=== PATIENT | male | born 1975 | race Hispanic/Latino ===

== ENCOUNTER 2024-09-14 02:07 | Emergency (ER) | payer SELFPAY ==
[~2024-09-14] VITALS: Ht 175.3 cm; Wt 102.1 kg
[2024-09-14 02:09] VITALS: BP 131/85; PULSE 70; RESP 16; TEMP 97.8
== END 2024-09-14 06:00 | disposition left against medical advice (07) ==
LOC: EDH 02:07
DX: M76.01 Gluteal tendinitis, right hip (principal); Z53.21 Procedure and treatment not carried out due to patient leaving prior to being seen by health care provider